=== PATIENT | female | born 1985 | race Hispanic/Latino ===

== ENCOUNTER → 2016-11-01 | Outpatient (REF) | payer BC ==
[2016-11-01 15:18] LABS: BILIRUBIN,URINE Negative (Negative); CLARITY,URINE Cloudy; COLOR,URINE Yellow; GLUCOSE, URINE (UA) Negative (Negative); LEUKOCYTE ESTERASE ,URINE Negative (Negative); PH,URINE 7.5 (5.0 - 8.0); UROBILINOGEN,URINE 0.2 mg/dL (0.2-1.0)
== END ==
LOC: LAB 14:43
PROVIDERS: ATTEND Family Medicine
DX: R10.9 Unspecified abdominal pain (principal)
CPT/HCPCS: 81003

== ENCOUNTER → 2016-11-04 | Outpatient (REF) | payer BC | LOC: LAB 12:12 | PROVIDERS: ATTEND Family Medicine | DX: Z53.9 Procedure and treatment not carried out, unspecified reason (principal) ==

== ENCOUNTER → 2016-11-04 | Outpatient (CLI) | payer BC | LOC: RAD 08:27 | PROVIDERS: ATTEND Family Medicine | DX: Z87.442 Personal history of urinary calculi (principal); R10.9 Unspecified abdominal pain; R30.0 Dysuria | CPT/HCPCS: 74178; Q9967 ==

== ENCOUNTER → 2016-11-14 | Outpatient (CLI) | payer BC | LOC: RAD 11-08 07:38 | PROVIDERS: ATTEND Family Medicine | DX: M53.3 Sacrococcygeal disorders, not elsewhere classified (principal); M54.16 Radiculopathy, lumbar region | CPT/HCPCS: 72148; 72195 ==

== ENCOUNTER → 2016-11-22 | Outpatient (CLI) | payer BC ==
[~2016-11-22] MED LIST: methylPREDNISolone 80 MG/ML (DEPO MEDROL) VIAL IM ONE
== END ==
LOC: PMC 12:25
PROVIDERS: ATTEND Family Medicine
PROC: 3E0R33Z Introduction of Anti-inflammatory into Spinal Canal, Percutaneous Approach (ICD-10-PCS; principal; 2016-11-22)
DX: M54.16 Radiculopathy, lumbar region (principal); M53.3 Sacrococcygeal disorders, not elsewhere classified

== ENCOUNTER 2016-12-14 00:11 | Emergency (ER) | payer BC ==
[~2016-12-14] VITALS: Ht 167.6 cm; Wt 52.0 kg
[2016-12-14] MEDS ORDERED: ALBUTEROL/IPRATROPIUM 3MG-0.5MG/3ML (DUONEB) NEB VIAL INH ONE ×2 (00:25)
[2016-12-14] MEDS ORDERED: predniSONE 20 MG (DELTASONE) TABLET PO ONE (00:25)
[2016-12-14 00:55] VITALS: BP 126/73
== END 2016-12-14 00:50 | disposition home or self-care (01) ==
LOC: ED 00:12
DX: T48.6X6A Underdosing of antiasthmatics, initial encounter (principal); R06.2 Wheezing; J45.909 Unspecified asthma, uncomplicated; Z91.138 Patient's unintentional underdosing of medication regimen for other reason
CPT/HCPCS: 94640; 99282; 99283

== ENCOUNTER → 2016-12-16 | Outpatient (REF) | payer BC ==
[2016-12-16 10:51] LABS: BASOPHILS % (AUTO) 0 % (0-2); EOSINOPHILS # (AUTO) 0.4 10^3uL; EOSINOPHILS % (AUTO) 4 % (0-4); LYMPHOCYTES # (AUTO) 1.4 X10^3; MEAN CORPUSCULAR HEMOGLOBIN 31.3 PG (26.0-34.0); MEAN CORPUSCULAR HGB CONC 34.7 g/dL (31.0-37.0); MEAN CORPUSCULAR VOLUME 90 FL (80-100); MEAN PLATELET VOLUME 10.9 FL (6.0-9.5); MONOCYTES # (AUTO) 0.8 X10^3; MONOCYTES % (AUTO) 8 % (3-11); NEUTROPHILS # (AUTO) 7.5 X10^3; NEUTROPHILS % (AUTO) 74 % (51-67); PLATELET COUNT 288 10^3uL (150-450); WHITE BLOOD COUNT 10.16 10^3uL (4.0-11.0)
[2016-12-16 11:29] LABS: ERYTHROCYTE SEDIMENTATION RT* 26 mm/hr (0-21)
[2016-12-18 16:09] LABS: HLA B27 Negative
== END ==
LOC: LAB 09:35
PROVIDERS: ATTEND Family Medicine
DX: M14.8 Arthropathies in other specified diseases classified elsewhere (principal)
CPT/HCPCS: 85025; 85652; 86038; 86140; 86431; 86812

== ENCOUNTER → 2016-12-16 | Outpatient (CLI) | payer BC | LOC: RAD 09:34 | PROVIDERS: ATTEND Family Medicine | DX: M14.8 Arthropathies in other specified diseases classified elsewhere (principal) | CPT/HCPCS: 73502 ==